=== PATIENT | male | born 1965 | race Caucasian/White ===

== ENCOUNTER 2018-02-20 20:34 | Emergency (ER) | payer OTHER ==
[~2018-02-20] VITALS: Ht 157.5 cm; Wt 52.3 kg
[2018-02-20 20:37] VITALS: BP 116/100; PULSE 130
== END 2018-02-20 21:07 | disposition left against medical advice (07) ==
LOC: COL.ER 20:34
DX: S39.92XA Unspecified injury of lower back, initial encounter (principal); I10 Essential (primary) hypertension; Z91.19 Patient's noncompliance with other medical treatment and regimen; W50.0XXA Accidental hit or strike by another person, initial encounter

== ENCOUNTER → 2018-07-31 | Outpatient (CLI) | payer OTHER | LOC: COL.RAD 10:17 | DX: M25.552 Pain in left hip (principal); M25.562 Pain in left knee ==

== ENCOUNTER 2021-10-24 13:54 | Emergency (ER) | payer SELFPAY ==
[~2021-10-24] VITALS: Ht 162.6 cm; Wt 50.0 kg
[2021-10-24] MEDS ORDERED: AMOXICILLIN 8751 TAB PO (15:54)
[2021-10-24] MEDS ORDERED: NORCO 325 MG-51 TAB PO (15:54)
[2021-10-24 17:00] VITALS: BP 132/64; PULSE 88; TEMP 97.2
== END 2021-10-24 17:10 | disposition home or self-care (01) ==
LOC: COL.ER 13:54
DX: S01.551A Open bite of lip, initial encounter (principal); I10 Essential (primary) hypertension; F17.210 Nicotine dependence, cigarettes, uncomplicated; Z23 Encounter for immunization; W54.0XXA Bitten by dog, initial encounter